=== PATIENT | male | born 1940 | race Caucasian/White ===

== ENCOUNTER 2020-10-23 14:49 | Observation (INO) | payer MEDICARE ==
[2020-10-23] MEDS ORDERED: ASPIRIN 325 MG TAB PO ONE (15:18)
--- NOTE | 2020-10-23 15:55 | XRay Report ---
CHEST 2 VIEWS INDICATION: Chest Pain. COMPARISON: None. FINDINGS: Support devices: None. Heart: Within normal limits. Lungs/Pleura: No acute air space or interstitial disease. Mild elevation right hemidiaphragm. Air i s seen beneath the right hemidiaphragm. This is likely within interposed bowel. IMPRESSION: 1. No acute infiltrate. 2. Air beneath the right hemidiaphragm is favored to be within bowel. If the patient has any acute ab dominal symptoms, further evaluation is recommended with CT abdomen and pelvis. Signer Name: Shaan Weathers MD Signed: 10/23/2020 3:50 PM Workstation Name: [id number]
[2020-10-23 16:10] LABS: Basophils # (Auto) 0.1 K/mm3 (0.0-0.1); Basophils % (Auto) 0.5 % (0.0-1.8); Eosinophils # (Auto) 0.1 K/mm3 (0.0-0.4); Eosinophils % (Auto) 1.1 % (0.0-4.3); Lymphocytes # (Auto) 1.5 K/mm3 (1.2-5.4); Lymphocytes % (Auto) 13.1 % (13.4-35.0); Mean Corpuscular HGB Conc 29 % (32-34); Monocytes # (Auto) 0.8 K/mm3 (0.0-0.8); Monocytes % (Auto) 7.4 % (0.0-7.3); Platelet Count 453 K/mm3 (140-440); Red Blood Count 2.85 M/mm3 (3.65-5.03); Red Cell Distribution Width 19.5 % (13.2-15.2)
[2020-10-23 16:22] LABS: Hemoglobin 5.6 gm/dl (11.8-15.2); Mean Corpuscular Volume 68 fl (84-94)
[2020-10-23 16:23] LABS: Hematocrit 19.3 % (35.5-45.6)
--- NOTE | 2020-10-23 18:04 | Event Note ---
ED Screening Note ED Screening Note: Upon review of patient's chart, it appears patient is hypotensive, his hemoglobin is 5 Discussed with charge nurse Rafy that patient needs a room as soon as possible as this is an emergent patient Also, discussed case with Dr. Araiza, ER attending This initial assessment/diagnostic orders/clinical plan/treatment(s) is/are subject to change based on patients health status, clinical progression and re- assessment by fellow clinical providers in the ED. Further treatment and workup at subsequent clinical providers discretion. Patient/guardian urged not to elope from the ED as their condition may be serious if not clinically assessed and managed.
[2020-10-23] MEDS ORDERED: SODIUM CHLORIDE 0.9% 500 ML 500 ML IV ONE (22:02)
--- NOTE | 2020-10-23 22:07 | Emergency Department Report ---
- General Chief complaint: Weakness Stated complaint: DIFFICULTY BREATHING Time Seen by Provider: 10/23/20 21:41 Source: patient, family Mode of arrival: Wheelchair Limitations: Language Barrier - History of Present Illness Initial comments: 80-year-old male with a past medical history emphysema (albuterol) also currently taking Seroquel (unclear diagnosis) and Myrbetriq (bladder med) presents to the hospital complaining of shortness of breath x3 weeks as well as associated dizziness and generalized weakness. He also complains of pain to his lungs with inspiration patient had a PMD visit today by Dr. Werner and han. Patient was ultimately sent to the ER for evaluation. No trauma or injury reported from fall. Patient also states he has noticed black stool for the last 2 months. No complaints of nausea, vomiting, fever, cough, or previous abdominal surgeries. Patient states he takes aspirin on occasion but denies consistent aspirin or NSAID use - Related Data Allergies Allergy/AdvReac Type Severity Reaction Status Date / Time No Known Allergies Allergy Verified 10/23/20 21:49 ED Review of Systems ROS: Stated complaint: DIFFICULTY BREATHING Other details as noted in HPI Comment: All other systems reviewed and negative ED Physical Exam - General Limitations: Language Barrier - Other Other exam information: General: No acute distress Head: Atraumatic Eyes: normal appearance ENT: Moist mucous membranes Neck: Normal appearance, no midline tenderness Chest: Clear to auscultation bilaterally CV: Regular rate and rhythm Abdomen: Soft, normal bowel sounds, nontender, nondistended, no rebound or guarding Rectal: Dark brown stool guaiac positive no gross blood Back: Normal inspection Extremity: Normal inspection, full range of motion Neuro: Alert O x 3, no facial asymmetry, speech clear, no gross motor sensory deficit Psych: Appropriate behavior Skin: Pale ED Course Vital Signs 10/23/20 10/23/20 15:03 17:27 Temperature 97.8 F Pulse Rate 94 H 91 H Respiratory 14 Rate Blood Pressure 89/53 111/64 [Right] O2 Sat by Pulse 97 Oximetry - Consultations Consultation #1: 10/23/20 22:[address] Zapata with GI and they will consult on the patient ED Medical Decision Making - Lab Data Result diagrams: 10/23/20 15:52 10/23/20 15:52 Lab Results 10/23/20 10/23/20 10/23/20 Range/Units 15:52 15:52 17:53 WBC 11.1 H (4.5-11.0) K/mm3 RBC 2.85 L (3.65-5.03) M/mm3 Hgb 5.6 L* (11.8-15.2) gm/dl Hct 19.3 L* (35.5-45.6) % MCV 68 L (84-94) fl MCH 20 L (28-32) pg MCHC 29 L (32-34) % RDW 19.5 H (13.2-15.2) % Plt Count 453 H (140-440) K/mm3 Lymph % (Auto) 13.1 L (13.4-35.0) % [place] % (Auto) 7.4 H (0.0-7.3) % Eos % (Auto) 1.1 (0.0-4.3) % Baso % (Auto) 0.5 (0.0-1.8) % Lymph # (Auto) 1.5 (1.2-5.4) K/mm3 [place] # (Auto) 0.8 (0.0-0.8) K/mm3 Eos # (Auto) 0.1 (0.0-0.4) K/mm3 Baso # (Auto) 0.1 (0.0-0.1) K/mm3 Seg Neutrophils % 77.9 H (40.0-70.0) % Seg Neutrophils # 8.7 H (1.8-7.7) K/mm3 Sodium 142 (137-145) mmol/L Potassium 4.4 (3.6-5.0) mmol/L Chloride 107.2 H (98-107) mmol/L Carbon Dioxide 23 (22-30) mmol/L Anion Gap 16 mmol/L BUN 14 (9-20) mg/dL Creatinine 1.4 H (0.8-1.3) mg/dL Estimated GFR 49 ml/min BUN/Creatinine Ratio 10 % Glucose 112 H (75-100) mg/dL Calcium 9.0 (8.4-10.2) mg/dL Troponin T 0.017 0.013 (0.00-0.029) ng/mL Blood Type Antibody Screen Crossmatch 10/23/20 10/23/20 Range/Units 18:12 21:02 WBC (4.5-11.0) K/mm3 RBC (3.65-5.03) M/mm3 Hgb (11.8-15.2) gm/dl Hct (35.5-45.6) % MCV (84-94) fl MCH (28-32) pg MCHC (32-34) % RDW (13.2-15.2) % Plt Count (140-440) K/mm3 Lymph % (Auto) (13.4-35.0) % [place] % (Auto) (0.0-7.3) % Eos % (Auto) (0.0-4.3) % Baso % (Auto) (0.0-1.8) % Lymph # (Auto) (1.2-5.4) K/mm3 [place] # (Auto) (0.0-0.8) K/mm3 Eos # (Auto) (0.0-0.4) K/mm3 Baso # (Auto) (0.0-0.1) K/mm3 Seg Neutrophils % (40.0-70.0) % Seg Neutrophils # (1.8-7.7) K/mm3 Sodium (137-145) mmol/L Potassium (3.6-5.0) mmol/L Chloride (98-107) mmol/L Carbon Dioxide (22-30) mmol/L Anion Gap mmol/L BUN (9-20) mg/dL Creatinine (0.8-1.3) mg/dL Estimated GFR ml/min BUN/Creatinine Ratio % Glucose (75-100) mg/dL Calcium (8.4-10.2) mg/dL Troponin T < 0.010 (0.00-0.029) ng/mL Blood Type A POSITIVE Antibody Screen Negative Crossmatch See Detail - EKG Data -: EKG Interpreted by Md EKG shows normal: sinus rhythm, ST-T waves (no stemi) Rate: normal (89) - Radiology Data Radiology results: report reviewed CHEST 2 VIEWS INDICATION: Chest Pain. COMPARISON: None. FINDINGS: Support devices: None. Heart: Within normal limits. Lungs/Pleura: No acute air space or interstitial disease. Mild elevation right hemidiaphragm. Air is seen beneath the right hemidiaphragm. This is likely within interposed bowel. IMPRESSION: 1. No acute infiltrate. 2. Air beneath the right hemidiaphragm is favored to be within bowel. If the patient has any acute abdominal symptoms, further evaluation is recommended with CT abdomen and pelvis. - Medical Decision Making 80-year-old male with progressively worsening shortness of breath, generalized weakness, and dizziness presents to the hospital with a hemoglobin of 5.6. Reports black stools for 2 months. Guaiac positive brown stool on examination. Abdomen soft and nontender. Chest x-ray unremarkable without signs of hypoxia in the ED. 1 unit of RBCs initiated. GI consulted. Patient will be admitted to the hospital service for further evaluation. Patient is initiated Blood pressure was low with a MAP of 65 but repeat blood pressure was within normal range with a MAP of 79. Critical Care Time: No Critical care attestation.: If time is entered above; I have spent that time in minutes in the direct care of this critically ill patient, excluding procedure time. ED Disposition Clinical Impression: Symptomatic anemia, Guaiac positive stools, Weakness, SOB (shortness of breath), Emphysema lung Disposition: OP ADMIT IP TO THIS HOSP Is pt being admited?: Yes Condition: Stable Instructions: Chronic Obstructive Pulmonary Disease (ED) Time of Disposition: 22:11 (Dr Chilel/hospitalist)
[2020-10-23 22:42] LABS: % Iron Saturation 2.79 %
[2020-10-23] MEDS ORDERED: SODIUM CHLORIDE 0.9% 500 ML 500 ML ONE (23:19)
[2020-10-24] MEDS ORDERED: ONDANSETRON 4 MG/2 ML INJ IV PRN (00:45)
[2020-10-24] MEDS ORDERED: ACETAMINOPHEN 325 MG TAB PO PRN (00:45)
[2020-10-24] MEDS ORDERED: ALBUTEROL 2.5 MG/3 ML NEBU IH PRN (00:45)
[2020-10-24] MEDS ORDERED: MORPHINE 2 MG/1 ML INJ IV PRN (00:45)
--- NOTE | 2020-10-24 00:54 | History and Physical Report ---
History of Present Illness Date of examination: 10/23/20 Date of admission: 10/23/20 22:15 Chief complaint: Generalized weakness Shortness of breath History of present illness: 80-year-old male with known history of emphysema and hypertension presenting to the emergency room today complaining of shortness of breath and dizziness which has been ongoing for about 3 weeks. He has also noticed some generalized weakness, occasional black stool. He has denied any chest pain, no fever or chills, denies any headache, no nausea or vomiting, no diarrhea, no h ematuria or dysuria. He denies using any nonsteroidal anti-inflammatory medication except aspirin oc casionally and Pauline-Raymond. Nephew who was by the bedside was the global sales executive as patient is Hungarian- speaking. Upon arrival in the emergency room today patient was found to be slightly hypotensive or given some IV fluid with significant improvement in his blood pressure. Work-up in the emergency room today reveals a hemoglobin of 5.6. He was also guaiac positive. Patient is being admitted for symptomatic anemia. Is been currently prepared for blood transfusion. Past History Past Medical History: hypertension, other (Emphysema) Past Surgical History: No surgical history Social history: smoking (Quit Tobacco use about 8 years ago) Family history: no significant family history Medications and Allergies Allergies Allergy/AdvReac Type Severity Reaction Status Date / Time No Known Allergies Allergy Verified 10/23/20 21:49 Active Meds: Active Medications Acetaminophen (Tylenol) 650 mg PO Q4H PRN PRN Reason: Pain MILD(1-3)/Fever >100.5/MONTANEZ Albuterol (Proventil) 2.5 mg IH Q4HRT PRN PRN Reason: Shortness Of Breath Morphine Sulfate (Morphine) 2 mg IV Q4H PRN PRN Reason: Pain, Moderate (4-6) Ondansetron HCl (Zofran) 4 mg IV Q8H PRN PRN Reason: Nausea And Vomiting Pantoprazole Sodium (Protonix) 40 mg IV BID ASHISH Sodium Chloride (Sodium Chloride Flush Syringe 10 Ml) 10 ml IV BID ASHISH Sodium Chloride (Sodium Chloride Flush Syringe 10 Ml) 10 ml IV PRN PRN PRN Reason: LINE FLUSH Review of Systems Constitutional: weakness, no fever, no chills Ears, nose, mouth and throat: no nasal congestion, no sore throat Cardiovascular: no chest pain, no palpitations Respiratory: shortness of breath, no cough Gastrointestinal: abdominal pain (Epigastric), no nausea, no vomiting, no diarrhea Genitourinary Male: no dysuria, no hematuria, no flank pain Musculoskeletal: no neck pain, no low back pain Integumentary: no rash, no pruritis Neurological: no headaches, no confusion Psychiatric: no anxiety, no depression Exam - Constitutional Vitals: Temp Pulse Resp BP Pulse Ox 97.8 F 89 24 130/71 94 10/23/20 23:40 10/23/20 23:55 10/23/20 23:55 10/23/20 23:55 10/23/20 23:55 General appearance: Present: no acute distress, well-nourished, other (Moderate Pallor.) - EENT Eyes: Present: PERRL, EOM intact. Absent: scleral icterus ENT: hearing intact, clear oral mucosa, dentition normal - Neck Neck: Present: supple, normal ROM - Respiratory Respiratory effort: normal Respiratory: bilateral: CTA - Cardiovascular Rhythm: regular Heart Sounds: Present: S1 & S2. Absent: gallop, systolic murmur, diastolic murmur, rub - Extremities Extremities: no ischemia, pulses intact, pulses symmetrical, No edema Peripheral Pulses: within normal limits - Abdominal General gastrointestinal: Present: soft, tender (Tenderness in epigastric region , Minimal guarding.), non-distended, normal bowel sounds. Absent: mass - Integumentary Integumentary: Present: clear, warm, dry - Musculoskeletal Musculoskeletal: strength equal bilaterally - Psychiatric Psychiatric: appropriate mood/affect, intact judgment & insight, memory intact, cooperative - Neurologic Neurologic: CNII-XII intact, no focal deficits, moves all extremities HEART Score - HEART Score Troponin: Troponin T < 0.010 ng/mL (0.00-0.029) 10/23/20 21:02 Results - Labs CBC & Chem 7: 10/23/20 15:52 10/23/20 15:52 Labs: Abnormal lab results 10/23/20 10/23/20 10/23/20 Range/Units 15:52 15:52 18:12 WBC 11.1 H (4.5-11.0) K/mm3 RBC 2.85 L (3.65-5.03) M/mm3 Hgb 5.6 L* (11.8-15.2) gm/dl Hct 19.3 L* (35.5-45.6) % MCV 68 L (84-94) fl MCH 20 L (28-32) pg MCHC 29 L (32-34) % RDW 19.5 H (13.2-15.2) % Plt Count 453 H (140-440) K/mm3 Lymph % (Auto) 13.1 L (13.4-35.0) % [place] % (Auto) 7.4 H (0.0-7.3) % Seg Neutrophils % 77.9 H (40.0-70.0) % Seg Neutrophils # 8.7 H (1.8-7.7) K/mm3 Chloride 107.2 H (98-107) mmol/L Creatinine 1.4 H (0.8-1.3) mg/dL Glucose 112 H (75-100) mg/dL Iron (49-181) ug/dL Crossmatch See Detail 10/23/20 Range/Units 21:02 WBC (4.5-11.0) K/mm3 RBC (3.65-5.03) M/mm3 Hgb (11.8-15.2) gm/dl Hct (35.5-45.6) % MCV (84-94) fl MCH (28-32) pg MCHC (32-34) % RDW (13.2-15.2) % Plt Count (140-440) K/mm3 Lymph % (Auto) (13.4-35.0) % [place] % (Auto) (0.0-7.3) % Seg Neutrophils % (40.0-70.0) % Seg Neutrophils # (1.8-7.7) K/mm3 Chloride (98-107) mmol/L Creatinine (0.8-1.3) mg/dL Glucose (75-100) mg/dL Iron 10 L (49-181) ug/dL Crossmatch Assessment and Plan - Patient Problems (1) Symptomatic anemia Current Visit: Yes Status: Acute Plan to address problem: Patient is being prepared for blood transfusion. Will monitor CBC. Consult placed to gastroenterology for evaluation and recommendation. He is currently made n.p.o. Patient is also placed on proton pump inhibitor for possible gastritis/upper GI bleed. (2) DVT prophylaxis Current Visit: Yes Status: Acute Plan to address problem: Patient placed on sequential compression device. (3) Full code status Current Visit: Yes Status: Acute
[2020-10-24] MEDS: PANTOPRAZOLE 40 MG INJ IV SCH ×2 (09:26→21:33)
[2020-10-24 11:41] LABS: Iron 25 ug/dL (49-181); Total Iron Binding Capacity 341 mcg/dL (250-450)
--- NOTE | 2020-10-25 00:36 | Consultation ---
REFERRING PHYSICIAN: Sid Gore MD INDICATION: Anemia. HISTORY OF PRESENT ILLNESS: The patient is a 80-year-old male with history of emphysema, hypertension, presents with shortness of breath and dizziness. The patient reports symptoms have been progressively worse over the last 3 weeks. He denies any weight loss or anemia. Denies any chest pain. Denies any other specific GI problems or complaints. The patient came to the Emergency Room, was noted to be very anemic, admitted and GI consulted. No other specific complaints. PAST MEDICAL HISTORY: 1. Hypertension. 2. Emphysema. MEDICATIONS: Reviewed and updated in chart. ALLERGIES: No known drug allergies. SOCIAL HISTORY: Denies alcohol, tobacco or drug abuse. FAMILY HISTORY: Negative for colon cancer, IBD or liver disease. REVIEW OF SYSTEMS: GENERAL: Reports some weakness. HEENT: No visual complaints or tinnitus. PULMONARY: No shortness of breath. No cough. No chest pain. GASTROINTESTINAL: Denies any signs of bleeding. PHYSICAL EXAMINATION: VITAL SIGNS: Temperature of 97.8, pulse 81, respirations 18, blood pressure 137/70. GENERAL: Fairly nourished male, in no acute distress. HEENT: Pupils equal, round and reactive. PULMONARY: Clear to auscultation bilaterally. CARDIOVASCULAR: Regular rhythm. Normal S1, S2. ABDOMEN: Positive bowel sound, soft. SKIN: No obvious rashes. LABORATORY DATA: Pertinent for white count of 11.1, hemoglobin and hematocrit of 5.6 and 19.3, platelet count of 453. Chem-7 within normal limits. ASSESSMENT: A 80-year-old male presents with symptomatic anemia with no obvious signs of gastrointestinal blood loss. The patient reports no signs of bleeding except for occasional black stools recently. Possible upper gastrointestinal bleed. PLAN: 1. Follow hematocrit and transfuse as needed. 2. PPI IV b.i.d. 3. Avoid NSAIDs and aspirin. 4. Probably EGD in a.m. JOB# [id number] CAB/NTS
[2020-10-25 05:23] LABS: Basophils % (Auto) 0.3 % (0.0-1.8); Eosinophils # (Auto) 0.2 K/mm3 (0.0-0.4); Eosinophils % (Auto) 1.8 % (0.0-4.3); Hematocrit 22.3 % (35.5-45.6); Hemoglobin 7.1 gm/dl (11.8-15.2); Lymphocytes # (Auto) 1.4 K/mm3 (1.2-5.4); Mean Corpuscular HGB Conc 32 % (32-34); Monocytes # (Auto) 0.6 K/mm3 (0.0-0.8); Platelet Count 386 K/mm3 (140-440); Red Blood Count 3.22 M/mm3 (3.65-5.03)
[2020-10-25 05:34] LABS: Mean Corpuscular Volume 69 fl (84-94); Red Cell Distribution Width 23.2 % (13.2-15.2)
[2020-10-25 05:42] LABS: BUN/Creatinine Ratio 12; Blood Urea Nitrogen 13 mg/dL (9-20); Calcium 8.8 mg/dL (8.4-10.2); Hemolysis Index 4
[2020-10-25] MEDS: PANTOPRAZOLE 40 MG INJ IV SCH ×2 (10:50→22:45)
[2020-10-25] MEDS ORDERED: SODIUM CHLORIDE 0.9% 1000 ML 1,000 ML IV SCH (12:30)
[2020-10-25] MEDS ORDERED: WATER FOR IRRIG STERILE 1,000 ML BOTTLE ONE (13:21)
--- NOTE | 2020-10-25 13:30 | Anesthesia Day of Surgery ---
Anesthesia Day of Surgery - Day of Surgery Patient Examined: Yes Patient H&P Reviewed: Yes Patient is NPO: Yes
--- NOTE | 2020-10-25 13:30 | Anesthesia Consultation ---
Anesthesia Consult and Med Hx Date of service: 10/25/20 - Airway Anesthetic Teeth Evaluation: Poor (1 remaining lower tooth), Edentulous (upper) ROM Head & Neck: Adequate Mental/Hyoid Distance: Adequate Mallampati Class: Class II Intubation Access Assessment: Probably Good - Pulmonary Exam CTA: Yes - Cardiac Exam Cardiac Exam: RRR - Pre-Operative Health Status ASA Pre-Surgery Classification: ASA3 Proposed Anesthetic Plan: MAC - Pulmonary Hx Smoking: Yes (prior heavy smoker; quit 8yrs ago) SOB: Yes (chronic [place]) Home Oxygen Therapy: No - Cardiovascular System Hx Hypertension: No (noted in chart review but patient denies, BP controlled this admission) Hx Heart Attack/AMI: No Hx Percutaneous Transluminal Coronary Angioplasty (PTCA): No - Central Nervous System CVA: No - Endocrine Hx Renal Disease: No Hx Liver Disease: No Hx Insulin Dependent Diabetes: No Hx Non-Insulin Dependent Diabetes: No Hx Thyroid Disease: No - Hematic Hx Anemia: Yes (symptomatic anemia on admission now s/p pRBCs) - Other Systems 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
[2020-10-25] MEDS ORDERED: propofoL 200 MG/20 ML VIAL IV ONE (13:57)
[2020-10-25] MEDS ORDERED: SODIUM CHLORIDE 0.9% 1000 ML IV SOLN IV ONE (14:10)
--- NOTE | 2020-10-25 14:57 | Post Anesthesia Evaluation ---
- Post Anesthesia Evaluation Patient Participated: Yes Airway Patent: Yes Stable Respiratory Function: Yes Nausea/Vomiting: No Temp > 96.8F: Yes Pain Manageable: Yes Adequeate Hydration: Yes Anesthesia Complications: No
--- NOTE | 2020-10-25 15:42 | Post Operative Note ---
Pre-op diagnosis: gi bleed, anemia Post-op diagnosis: same Findings: EGD: hiatal hernia - few small ulceration, shallow ulcers noted antrum (bx's) - mild duodenitis (bx's) - negative other Procedure: EGD Anesthesia: MAC Surgeon: LIZA FLOWER Estimated blood loss: none Pathology: list Specimen disposition: to lab Condition: stable Disposition: floor
--- NOTE | 2020-10-25 15:55 | Operative Report ---
PROCEDURE: EGD with core biopsies. INDICATIONS: 1. Anemia. 2. Gastrointestinal bleed. MEDICATIONS: Propofol per TOW TRUCK DISPATCHER. COMPLICATIONS: None. DESCRIPTION OF PROCEDURE: The patient brought to procedure suite. The patient had the procedure discussed with him at length. All risks, complications, and benefits discussed after which the patient signed for the procedure to be performed. The patient was placed in left lateral decubitus position. Mouth block was placed in the patient's oral cavity. After adequate sedation medication as above, endoscope placed in the mouth and brought to level of the second portion of duodenum. Retroflexion view was performed. The patient's vital signs remained stable throughout the procedure. FINDINGS: There was a small hiatal hernia at GE junction at 40 cm from the gums. Esophagus otherwise grossly was normal. There was [id number] antral gastritis with some ulcerations and shallow ulcers noted. No bleeding stigmata was noted. Biopsies were taken from the antrum and body and sent for pathology. The remaining stomach otherwise appeared to be normal. There was mild duodenitis in the duodenal bulb. Biopsies were taken and sent to pathology. Remaining duodenum otherwise appeared to be normal. Retroflexion view performed in the stomach showed no other pathology other than noted above. The patient tolerated the procedure well. No complications during the procedure. IMPRESSION: 1. Hiatal hernia. 2. Mild gastritis with shallow ulcers and ulcerations noted in the distal body and antrum with biopsies taken. No bleeding stigmata noted. Duodenitis with biopsies taken. Again, no bleeding stigmata. 3. Otherwise, normal esophagogastroduodenoscopy. RECOMMENDATIONS: 1. Follow up biopsy results. 2. If H. pylori positive, treat. 3. PPI daily. 4. Advance diet. 5. Colonoscopy in a.m. or if the patient elects as an outpatient. JOB# [id number] CAB/NTS
[2020-10-25] MEDS ORDERED: POLYETHYLENE GLYCOL/ELECT SOLN 4000 ML PO ONE (18:00)
--- NOTE | 2020-10-25 21:06 | Progress Note ---
Assessment and Plan - Patient Problems (1) GI bleed Current Visit: Yes Status: Acute Plan to address problem: Packed red blood cell transfusion, GI consulted, endoscopy as per GI team. Patient to operating room today as per GI team. (2) Symptomatic anemia Current Visit: Yes Status: Acute Plan to address problem: Packed red blood cell transfusion, supportive care, repeat CBC in a.m. (3) COPD (chronic obstructive pulmonary disease) Current Visit: Yes Status: Acute Qualifiers: Chronic bronchitis type: mixed simple and mucopurulent Plan to address problem: Supportive care, no acute exacerbation at this time. (4) Hypertension Current Visit: Yes Status: Acute Qualifiers: Hypertension type: essential hypertension Qualified Code(s): I10 - Essential (primary) hypertension Plan to address problem: Monitor blood pressure every shift, continue medical management. (5) DVT prophylaxis Current Visit: Yes Status: Acute Plan to address problem: SCD to bilateral lower extremities while in bed, patient is ambulatory. (6) Advance care planning Current Visit: Yes Status: Acute Plan to address problem: Disease education conducted, patient is full code, care plan discussed, patient knowledges understanding and agreement with care plan, +30 minutes. History Interval history: 80 YO Male HD #2 with GI Bleed complicated by symptomatic anemia. Patient to operating room today for endoscopic evaluation as per GI team. Patient denies pain. No reported nursing events. Patient appears comfortable. Hospitalist Physical - Constitutional Vitals: Temp Pulse Resp BP Pulse Ox 98.3 F 99 H 17 115/72 95 10/25/20 20:50 10/25/20 20:50 10/25/20 20:50 10/25/20 20:50 10/25/20 20:50 General appearance: Present: no acute distress, well-nourished, other (Moderate Pallor.) - EENT Eyes: Present: PERRL (Conjunctival pallor), EOM intact ENT: hearing intact - Neck Neck: Present: supple - Respiratory Respiratory effort: normal Respiratory: bilateral: CTA - Cardiovascular Rhythm: regular Heart Sounds: Present: S1 & S2 - Extremities Extremities: no ischemia Peripheral Pulses: within normal limits - Abdominal General gastrointestinal: soft, non-tender, non-distended - Integumentary Integumentary: Present: clear, dry - Psychiatric Psychiatric: appropriate mood/affect, cooperative HEART Score - HEART Score Troponin: Troponin T < 0.010 ng/mL (0.00-0.029) 10/23/20 21:02 Results - Labs CBC & Chem 7: 10/25/20 04:35 10/25/20 04:35 Labs: Laboratory Last Values WBC 9.1 K/mm3 (4.5-11.0) 10/25/20 04:35 RBC 3.22 M/mm3 (3.65-5.03) L 10/25/20 04:35 Hgb 7.1 gm/dl (11.8-15.2) L 10/25/20 04:35 Hct 22.3 % (35.5-45.6) L 10/25/20 04:35 MCV 69 fl (84-94) L 10/25/20 04:35 MCH 22 pg (28-32) L 10/25/20 04:35 MCHC 32 % (32-34) 10/25/20 04:35 RDW 23.2 % (13.2-15.2) H 10/25/20 04:35 Plt Count 386 K/mm3 (140-440) 10/25/20 04:35 Lymph % (Auto) 16.0 % (13.4-35.0) 10/25/20 04:35 [place] % (Auto) 7.0 % (0.0-7.3) 10/25/20 04:35 Eos % (Auto) 1.8 % (0.0-4.3) 10/25/20 04:35 Baso % (Auto) 0.3 % (0.0-1.8) 10/25/20 04:35 Lymph # (Auto) 1.4 K/mm3 (1.2-5.4) 10/25/20 04:35 [place] # (Auto) 0.6 K/mm3 (0.0-0.8) 10/25/20 04:35 Eos # (Auto) 0.2 K/mm3 (0.0-0.4) 10/25/20 04:35 Baso # (Auto) 0.0 K/mm3 (0.0-0.1) 10/25/20 04:35 Seg Neutrophils % 74.9 % (40.0-70.0) H 10/25/20 04:35 Seg Neutrophils # 6.8 K/mm3 (1.8-7.7) 10/25/20 04:35 PT 13.1 Sec. (12.2-14.9) 10/25/20 04:35 INR 1.00 (0.87-1.13) 10/25/20 04:35 Sodium 136 mmol/L (137-145) L 10/25/20 04:35 Potassium 4.5 mmol/L (3.6-5.0) 10/25/20 04:35 Chloride 106.1 mmol/L (98-107) 10/25/20 04:35 Carbon Dioxide 18 mmol/L (22-30) L 10/25/20 04:35 Anion Gap 16 mmol/L 10/25/20 04:35 BUN 13 mg/dL (9-20) 10/25/20 04:35 Creatinine 1.1 mg/dL (0.8-1.3) 10/25/20 04:35 Estimated GFR > 60 ml/min 10/25/20 04:35 BUN/Creatinine Ratio 12 % 10/25/20 04:35 Glucose 101 mg/dL (75-100) H 10/25/20 04:35 Calcium 8.8 mg/dL (8.4-10.2) 10/25/20 04:35 Iron 25 ug/dL (49-181) L 10/24/20 10:14 TIBC 341 mcg/dL (250-450) 10/24/20 10:14 % Saturation 2.79 % 10/23/20 21:02 Transferrin 291 mg/dl (180-329) 10/23/20 21:02 Troponin T < 0.010 ng/mL (0.00-0.029) 10/23/20 21:02 Blood Type A POSITIVE 10/23/20 18:12 Antibody Screen Negative 10/23/20 18:12 Crossmatch See Detail 10/23/20 18:12 [place]/IV: Voiding Method Toilet IV Catheter Type [Left Forearm INT / Saline Lock ] IV Catheter Type [Right INT / Saline Lock Forearm] Active Medications - Current Medications Current Medications: Generic Name Dose Route Start Last Admin Trade Name Freq PRN Reason Stop Dose Admin Acetaminophen 650 mg 10/24/20 00:45 Tylenol PO Q4H PRN Pain MILD(1-3)/Fever >100.5/MONTANEZ Albuterol 2.5 mg 10/24/20 00:45 Proventil IH Q4HRT PRN Shortness Of Breath Sodium Chloride 1,000 mls @ 50 mls/hr 10/25/20 12:30 Nacl 0.9% 1000 Ml IV DIRECT ASHISH Morphine Sulfate 2 mg 10/24/20 00:45 Morphine IV Q4H PRN Pain, Moderate (4-6) Ondansetron HCl 4 mg 10/24/20 00:45 Zofran IV Q8H PRN Nausea And Vomiting Pantoprazole Sodium 40 mg 10/24/20 10:00 10/25/20 10:50 Protonix IV 40 mg BID ASHISH Administration Sodium Chloride 10 ml 10/24/20 10:00 10/25/20 10:51 Sodium Chloride Flush Syringe 10 Ml IV 10 ml BID ASHISH Administration Sodium Chloride 10 ml 10/24/20 00:45 Sodium Chloride Flush Syringe 10 Ml IV PRN PRN LINE FLUSH
[2020-10-26] MEDS: PANTOPRAZOLE 40 MG INJ IV SCH (10:02)
[2020-10-26] MEDS ORDERED: WATER FOR IRRIG STERILE 1,000 ML BOTTLE ONE (11:08)
--- NOTE | 2020-10-26 11:43 | Anesthesia Day of Surgery ---
Anesthesia Day of Surgery - Day of Surgery Patient Examined: Yes Patient H&P Reviewed: Yes Patient is NPO: Yes
--- NOTE | 2020-10-26 11:45 | Discharge Summary ---
Providers - Providers Date of Admission: 10/23/20 22:15 Attending physician: TERESO JASSO 10/23/20 22:12 Consult to Physician [CONS] Urgent Comment: Consulting Provider: MELINA CRAWFORD Physician Instructions: Reason For Exam: guaic positive stool, anemia Primary care physician: JANET ELLISON Hospitalization Condition: Stable Procedures: EGD: Ulcer, Hiatial hernia Colonscopy: Polyps Hospital course: 80 YO Male with COPD -year-old male with known history of emphysema and hypertension presenting to the emergency room today complaining of shortness of breath and dizziness which has been ongoing for about 3 weeks. Patient seen and evaluated in the emergency department. All lab and imaging studies reviewed. Patient found to be Hemoccult positive. Patient admitted for GI bleed complicated by symptomatic anemia which was treated with packed red blood cell transfusion. GI team consulted in ED. Patient underwent EGD and colonoscopy. Patient medically optimized and back to usual state of health. Patient subsequently discharged home. Patient medically stabilized a day of discharge. Patient instructed to follow primary care physician in 1 week and to follow-up with GI as instructed. 35 minutes dedicated to patient discharge and coordination of care. Patient instructed to have age-appropriate screening upo n next visit to primary care physician. Disposition: - TO HOME OR SELFCARE - Discharge Diagnoses (1) GI bleed Status: Acute (2) Symptomatic anemia Status: Acute (3) COPD (chronic obstructive pulmonary disease) Status: Acute Qualifiers: Chronic bronchitis type: mixed simple and mucopurulent (4) Hypertension Status: Acute Qualifiers: Hypertension type: essential hypertension Qualified Code(s): I10 - Essential (primary) hypertension (5) DVT prophylaxis Status: Acute (6) Advance care planning Status: Acute Core Measure Documentation - Palliative Care Palliative Care/ Comfort Measures: Not Applicable - Core Measures Any of the following diagnoses?: none Exam - Constitutional Vitals: Temp Pulse Resp BP Pulse Ox 97.9 F 98 H 16 116/70 94 10/26/20 08:40 10/26/20 08:40 10/26/20 08:40 10/26/20 08:40 10/26/20 08:40 General appearance: Present: no acute distress, well-nourished - EENT Eyes: Present: PERRL ENT: hearing intact, clear oral mucosa - Neck Neck: Present: supple, normal ROM - Respiratory Respiratory effort: normal Respiratory: bilateral: CTA - Cardiovascular Heart Sounds: Present: S1 & S2. Absent: rub, click - Extremities Extremities: pulses symmetrical, No edema Peripheral Pulses: within normal limits - Abdominal General gastrointestinal: Present: soft, non-tender, non-distended, normal bowel sounds Male genitourinary: Present: normal - Integumentary Integumentary: Present: clear, warm, dry - Musculoskeletal Musculoskeletal: gait normal, strength equal bilaterally - Psychiatric Psychiatric: appropriate mood/affect, intact judgment & insight - Neurologic Neurologic: CNII-XII intact, moves all extremities Plan Activity: advance as tolerated Follow up with: PRIMARY CARE, [Referring] - 3-5 Days Prescriptions: Sennosides/Docusate Sodium [Docusate Sodium-Senna Tablet] 1 each PO BID #60 tablet Ferrous Sulfate [Ferrous Sulfate 324 MG] 324 mg PO BID #60 tablet. Pantoprazole [Protonix] 40 mg PO BID #60 tablet
[2020-10-26] MEDS ORDERED: propofoL 200 MG/20 ML VIAL IV ONE (12:16)
[2020-10-26 13:28] VITALS: BP 93/65
--- NOTE | 2020-10-26 13:48 | Progress Note ---
Assessment and Plan - Patient Problems (1) GI bleed Current Visit: Yes Status: Acute Plan to address problem: Packed red blood cell transfusion, GI consulted, endoscopy as per GI team. Patient to operating room today as per GI team. (2) Symptomatic anemia Current Visit: Yes Status: Acute Plan to address problem: Packed red blood cell transfusion, supportive care, repeat CBC in a.m. (3) COPD (chronic obstructive pulmonary disease) Current Visit: Yes Status: Acute Qualifiers: Chronic bronchitis type: mixed simple and mucopurulent Plan to address problem: Supportive care, no acute exacerbation at this time. (4) Hypertension Current Visit: Yes Status: Acute Qualifiers: Hypertension type: essential hypertension Qualified Code(s): I10 - Essential (primary) hypertension Plan to address problem: Monitor blood pressure every shift, continue medical management. (5) DVT prophylaxis Current Visit: Yes Status: Acute Plan to address problem: SCD to bilateral lower extremities while in bed, patient is ambulatory. (6) Advance care planning Current Visit: Yes Status: Acute Plan to address problem: Disease education conducted, patient is full code, care plan discussed, patient knowledges understanding and agreement with care plan, +30 minutes. History Interval history: 80 YO Male with GI Bleed complicated by symptomatic anemia. Patient to operating room today for endoscopic evaluation as per GI team. Patient denies pain. No reported nursing events. Patient appears comfortable. Hospitalist Physical - Constitutional Vitals: Temp Pulse Resp BP Pulse Ox 98.6 F 78 14 93/65 98 10/26/20 13:07 10/26/20 13:07 10/26/20 13:07 10/26/20 13:07 10/26/20 13:07 General appearance: Present: no acute distress, well-nourished, other (Moderate Pallor.) - EENT Eyes: Present: PERRL, EOM intact ENT: hearing intact - Neck Neck: Present: supple - Respiratory Respiratory effort: normal Respiratory: bilateral: CTA - Cardiovascular Rhythm: regular Heart Sounds: Present: S1 & S2 - Extremities Extremities: no ischemia Peripheral Pulses: within normal limits - Abdominal General gastrointestinal: soft, non-tender, non-distended - Integumentary Integumentary: Present: clear, dry - Psychiatric Psychiatric: appropriate mood/affect, cooperative - Neurologic Neurologic: CNII-XII intact HEART Score - HEART Score Troponin: Troponin T < 0.010 ng/mL (0.00-0.029) 10/23/20 21:02 Results - Labs CBC & Chem 7: 10/25/20 04:35 10/25/20 04:35 Labs: Laboratory Last Values WBC 9.1 K/mm3 (4.5-11.0) 10/25/20 04:35 RBC 3.22 M/mm3 (3.65-5.03) L 10/25/20 04:35 Hgb 7.1 gm/dl (11.8-15.2) L 10/25/20 04:35 Hct 22.3 % (35.5-45.6) L 10/25/20 04:35 MCV 69 fl (84-94) L 10/25/20 04:35 MCH 22 pg (28-32) L 10/25/20 04:35 MCHC 32 % (32-34) 10/25/20 04:35 RDW 23.2 % (13.2-15.2) H 10/25/20 04:35 Plt Count 386 K/mm3 (140-440) 10/25/20 04:35 Lymph % (Auto) 16.0 % (13.4-35.0) 10/25/20 04:35 [place] % (Auto) 7.0 % (0.0-7.3) 10/25/20 04:35 Eos % (Auto) 1.8 % (0.0-4.3) 10/25/20 04:35 Baso % (Auto) 0.3 % (0.0-1.8) 10/25/20 04:35 Lymph # (Auto) 1.4 K/mm3 (1.2-5.4) 10/25/20 04:35 [place] # (Auto) 0.6 K/mm3 (0.0-0.8) 10/25/20 04:35 Eos # (Auto) 0.2 K/mm3 (0.0-0.4) 10/25/20 04:35 Baso # (Auto) 0.0 K/mm3 (0.0-0.1) 10/25/20 04:35 Seg Neutrophils % 74.9 % (40.0-70.0) H 10/25/20 04:35 Seg Neutrophils # 6.8 K/mm3 (1.8-7.7) 10/25/20 04:35 PT 13.1 Sec. (12.2-14.9) 10/25/20 04:35 INR 1.00 (0.87-1.13) 10/25/20 04:35 Sodium 136 mmol/L (137-145) L 10/25/20 04:35 Potassium 4.5 mmol/L (3.6-5.0) 10/25/20 04:35 Chloride 106.1 mmol/L (98-107) 10/25/20 04:35 Carbon Dioxide 18 mmol/L (22-30) L 10/25/20 04:35 Anion Gap 16 mmol/L 10/25/20 04:35 BUN 13 mg/dL (9-20) 10/25/20 04:35 Creatinine 1.1 mg/dL (0.8-1.3) 10/25/20 04:35 Estimated GFR > 60 ml/min 10/25/20 04:35 BUN/Creatinine Ratio 12 % 10/25/20 04:35 Glucose 101 mg/dL (75-100) H 10/25/20 04:35 Calcium 8.8 mg/dL (8.4-10.2) 10/25/20 04:35 Iron 25 ug/dL (49-181) L 10/24/20 10:14 TIBC 341 mcg/dL (250-450) 10/24/20 10:14 % Saturation 2.79 % 10/23/20 21:02 Transferrin 291 mg/dl (180-329) 10/23/20 21:02 Troponin T < 0.010 ng/mL (0.00-0.029) 10/23/20 21:02 Blood Type A POSITIVE 10/23/20 18:12 Antibody Screen Negative 10/23/20 18:12 Crossmatch See Detail 10/23/20 18:12 Purecll/IV: Voiding Method Toilet IV Catheter Type [Left Forearm INT / Saline Lock ] IV Catheter Type [Right INT / Saline Lock Forearm] Active Medications - Current Medications Current Medications: Generic Name Dose Route Start Last Admin Trade Name Freq PRN Reason Stop Dose Admin Acetaminophen 650 mg 10/24/20 00:45 Tylenol PO Q4H PRN Pain MILD(1-3)/Fever >100.5/MONTANEZ Albuterol 2.5 mg 10/24/20 00:45 Proventil IH Q4HRT PRN Shortness Of Breath Sodium Chloride 1,000 mls @ 50 mls/hr 10/25/20 12:30 Nacl 0.9% 1000 Ml IV DIRECT ASHISH Morphine Sulfate 2 mg 10/24/20 00:45 Morphine IV Q4H PRN Pain, Moderate (4-6) Ondansetron HCl 4 mg 10/24/20 00:45 Zofran IV Q8H PRN Nausea And Vomiting Pantoprazole Sodium 40 mg 10/24/20 10:00 10/26/20 10:02 Protonix IV 40 mg BID ASHISH Administration Sodium Chloride 10 ml 10/24/20 10:00 10/26/20 10:02 Sodium Chloride Flush Syringe 10 Ml IV 10 ml BID ASHISH Administration Sodium Chloride 10 ml 10/24/20 00:45 Sodium Chloride Flush Syringe 10 Ml IV PRN PRN LINE FLUSH
--- NOTE | 2020-10-26 13:59 | Post Operative Note ---
Pre-op diagnosis: anemia Post-op diagnosis: same Findings: Colon: 4-5 cm 1/3 circumferential lesion ascending colon, cold bx's/nora ink - negative other Procedure: Colonoscopy Anesthesia: MAC Surgeon: LIZA FLOWER Estimated blood loss: none Pathology: list Specimen disposition: to lab Condition: stable Disposition: floor
--- NOTE | 2020-10-26 15:30 | Consultation ---
History of Present Illness Consult date: 10/26/20 Reason for consult: abdominal pain Chief complaint: weakness, abd pain, sob - History of present illness History of present illness: Patient is Danish-speaking only and the entire interview was conducted with the [facility] certified court/medical interpreter. 80-year-old male with past medical history of emphysema who presented to the emergency department with several days of dizziness, shortness of breath, upper abdominal pain. The patient states that the upper abdominal pain was sharp and did not radiate. It was right above the bellybutton area. He states that the pain is completely resolved today. He is hungry and wanting to eat regular food. The patient also relays a history of dark black stools. He states this is resolved as well. Upon arrival to the emergency room, work-up showed an anemia with hemoglobin at 5.6. The patient was transfused 1 unit of blood during the hospitalization. The patient underwent an EGD and colonoscopy. EGD showed duodenitis, small hiatal hernia, small ulcerations in the stomach. Colonoscopy showed a 5 cm ascending colon mass approximately one third the circumference of the colon without evidence of active bleeding or obstruction. Surgery is consulted for evaluation. Pt states he feels better. He is tolerating a diet and asking for more than clear liquids. No abdominal pain. No n/v. No further melena. He is wanting to go home. Past History Past Medical History: hypertension, other (Emphysema) Past Surgical History: No surgical history Social history: smoking (Quit Tobacco use about 8 years ago) Family history: no significant family history Medications and Allergies Allergies Allergy/AdvReac Type Severity Reaction Status Date / Time Penicillins Allergy Unknown Verified 10/26/20 13:35 Home Medications Medication Instructions Recorded Confirmed Last Taken Type Ferrous Sulfate [Ferrous Sulfate 324 mg PO BID #60 tablet. 10/26/20 Unknown Rx 324 MG] Pantoprazole [Protonix] 40 mg PO BID #60 tablet 10/26/20 Unknown Rx Sennosides/Docusate Sodium 1 each PO BID #60 tablet 10/26/20 Unknown Rx [Docusate Sodium-Senna Tablet] Active Meds: Active Medications Acetaminophen (Tylenol) 650 mg PO Q4H PRN PRN Reason: Pain MILD(1-3)/Fever >100.5/MONTANEZ Albuterol (Proventil) 2.5 mg IH Q4HRT PRN PRN Reason: Shortness Of Breath Sodium Chloride (Nacl 0.9% 1000 Ml) 1,000 mls @ 50 mls/hr IV DIRECT [facility] Morphine Sulfate (Morphine) 2 mg IV Q4H PRN PRN Reason: Pain, Moderate (4-6) Ondansetron HCl (Zofran) 4 mg IV Q8H PRN PRN Reason: Nausea And Vomiting Pantoprazole Sodium (Protonix) 40 mg IV BID [facility] Last Admin: 10/26/20 10:02 Dose: 40 mg Documented by: Sodium Chloride (Sodium Chloride Flush Syringe 10 Ml) 10 ml IV BID [facility] Last Admin: 10/26/20 10:02 Dose: 10 ml Documented by: Sodium Chloride (Sodium Chloride Flush Syringe 10 Ml) 10 ml IV PRN PRN PRN Reason: LINE FLUSH Review of Systems All systems: negative (10 point ROS performed and negative except for that listed in HPI) Exam Vital Signs Temp Pulse Resp BP Pulse Ox 97.8 F 94 H 14 89/53 97 10/23/20 15:03 10/23/20 15:03 10/23/20 15:03 10/23/20 15:03 10/23/20 15:03 Narrative exam: Gen.: Awake, alert, oriented 3. No apparent distress ENT: Trachea midline. No lymphadenopathy. No scleral icterus or conjunctival pallor CV: S1, S2 present Respiratory: No audible wheezes Abdomen: Soft, nondistended, nontender. No rebound, rigidity, guarding Extremities: No clubbing, cyanosis, edema Results - Labs 10/25/20 04:35 10/25/20 04:35 - Imaging Chest x-ray: report reviewed, image reviewed Assessment and Plan 80-year-old male with anemia, multifactorial likely secondary to gastric ulcers and ascending colon mass. Pt stable. Pt wanting to go home. Plan: 1. Follow up biopsy results 2. soft diet 3. As patient is not obstructed or actively bleeding, can be discharged home and follow up in surgery clinic as an outpatient. I have made an appointment for Sunday, November 01, 2020 at [address] scan abdomen and pelvis will be scheduled through my office 5. Referral to oncology as outpatient 6. We will order CEA and additional labs through my office. I explained the results of the patient's labs, endoscopy and colonoscopy to the patient's nephew Mr. Mustafa as per the patient's request. I explained that the patient will need to follow-up in the office as scheduled as he will need elective colectomy for the ascending colon mass. He understands and is agreeable. Discussed with Dr. Scott and Bao. Thank you for this consultation. Please call with any questions or concerns. Evaluation and treatment of this patient was during the time of the national and state emergency arising from COVID19 coronavirus pandemic. Treatment and pr ocedures performed meet the current and available best practice and guidelines for patient during the COVID pandemic.
--- NOTE | 2020-10-26 16:04 | Operative Report ---
PROCEDURE: Colonoscopy with cold biopsy and Nini ink marking. INDICATIONS: 1. Anemia. 2. Gastrointestinal bleed. MEDICATIONS: Propofol per CLINICAL COUNSELOR. COMPLICATIONS: None. DESCRIPTION OF PROCEDURE: The patient was brought to procedure suite. The patient had the procedure discussed with him at length. All risks, complications, and benefits discussed after which the patient signed for the procedure performed. The patient was placed in the left lateral decubitus position. Rectal exam performed prior to insertion of the scope. After adequate sedation medication as above, scope inserted into the rectum, brought to level of cecum. Ileocecal valve, appendiceal orifice, cecal strap were visualized. Colonoscope was then removed and mucosa of colon visualized. Prep quality was fair. The patient's vital signs remained stable throughout the procedure. FINDINGS: There was noted to be a 30-40 cm circumferential nonobstructing mass noted in the mid ascending colon. This was approximately 4-5 cm in length. This had a malignant like appearance. Multiple cold biopsies were taken and sent to pathology. Nini ink marking with a total of 5 mL was then applied to the area. There were no other mass lesions, polyps, or diverticula noted during this procedure. Retroflexion view performed in the rectum showed small to medium internal hemorrhoids. The patient tolerated the procedure well. No complications noted during the procedure. IMPRESSION: 1. Mass lesions, ascending colon, status post cold biopsy and Nini ink marking. 2. Internal hemorrhoids. 3. Otherwise, normal colonoscopy. RECOMMENDATIONS: 1. Follow up biopsy results. 2. Avoid NSAIDs and aspirin for 5 days. 3. Colorectal Surgery consult as well as Oncology consult. 4. CT scan of abdomen and pelvis with contrast if not already done. 5. Okay to discharge when cleared by consultants as noted above. JOB# [id number] CAB/NTS
== END 2020-10-26 15:59 | disposition home or self-care (01) ==
LOC: ED 14:49 → 4A 22:15
PROVIDERS: ADMIT Internal Medicine Geriatric Medicine; ATTEND Internal Medicine
DX: K92.2 Gastrointestinal hemorrhage, unspecified (principal); D64.9 Anemia, unspecified; K44.9 Diaphragmatic hernia without obstruction or gangrene; I10 Essential (primary) hypertension; J43.9 Emphysema, unspecified; R42 Dizziness and giddiness; K64.8 Other hemorrhoids; Z87.891 Personal history of nicotine dependence; Z79.899 Other long term (current) drug therapy; Z88.0 Allergy status to penicillin
CPT/HCPCS: 36415; 36430; 43239; 45380; 71046; 80048; 82271; 83550; 84484; 85025; 85610; 86850; 86900; 86901; 86920; 88305; 88342; 93005; 96360; 96361; 96374; 96376; 99285; C9113; G0378; J2704; J7030; J7040; P9016

== ENCOUNTER 2020-11-01 11:58 | Emergency (ER) | payer MEDICARE ==
[2020-11-01 12:28] VITALS: BP 121/68
--- NOTE | 2020-11-01 12:29 | Event Note ---
ED Screening Note ED Screening Note: abd pain black stools had endoscopy and needed blood transfusion last week no vomiting hx of erosive PUD hx of hernia sent by doctor gen joao nguyen This initial assessment/diagnostic orders/clinical plan/treatment(s) is/are subject to change based on patients health status, clinical progression and re- assessment by fellow clinical providers in the ED. Further treatment and workup at subsequent clinical providers discretion. Patient/guardian urged not to elope from the ED as their condition may be serious if not clinically assessed and managed. Initial orders include: labs EKG NEEDS MAIN ROOM JANI charge nurse notified
[2020-11-01 14:00] LABS: Basophils % (Auto) 0.7 % (0.0-1.8); Eosinophils # (Auto) 0.1 K/mm3 (0.0-0.4); Eosinophils % (Auto) 2.2 % (0.0-4.3); Hematocrit 23.3 % (35.5-45.6); Hemoglobin 7.1 gm/dl (11.8-15.2); Lymphocytes # (Auto) 1.4 K/mm3 (1.2-5.4); Lymphocytes % (Auto) 20.8 % (13.4-35.0); Mean Corpuscular HGB Conc 30 % (32-34); Monocytes # (Auto) 0.5 K/mm3 (0.0-0.8); Monocytes % (Auto) 7.4 % (0.0-7.3); Platelet Count 495 K/mm3 (140-440); Red Blood Count 3.36 M/mm3 (3.65-5.03)
[2020-11-01 14:05] LABS: Mean Corpuscular Volume 70 fl (84-94); Red Cell Distribution Width 24.4 % (13.2-15.2)
[2020-11-01 14:21] LABS: Alanine Aminotransferase 24 units/L (7-56); BUN/Creatinine Ratio 13; Blood Urea Nitrogen 13 mg/dL (9-20); Hemolysis Index 1
[2020-11-01] MEDS ORDERED: PANTOPRAZOLE 40 MG INJ IV ONE (17:25)
[2020-11-01] MEDS ORDERED: ONDANSETRON 4 MG/2 ML INJ IV ONE (17:25)
[2020-11-01] MEDS ORDERED: MORPHINE 4 MG/1 ML INJ IV ONE (17:25)
--- NOTE | 2020-11-01 17:49 | Emergency Department Report ---
ED Abdominal Pain HPI - General Chief Complaint: Abdominal Pain Stated Complaint: DIZZY/DOC SENT PUI?: No Time Seen by Provider: 11/01/20 12:25 Source: patient, family Mode of arrival: Ambulatory Limitations: No Limitations - History of Present Illness Initial Comments: Chief complaint: abdominal pain dark bloody stools HPI: This is a 80-year-old male with history of GI bleed, COPD, anemia, hypertension, colonic mass, duodenitis, hiatal hernia who presents with abdominal pain for the past week. Patient has had dark bloody stools over that same course of time. Patient's abdominal pain began after receiving transfusion while hospitalized. Patient was recently discharged 6 days ago after extensive evaluation for GI bleeding colonic mass. He received 1 unit packed red blood cells. According to EMR he underwent EGD and colonoscopy. Dr. Díaz general surgeon referred patient to the emergency department today for CT abdominal pelvic skin considering patient had persistent abdominal pain. Patient has mild to moderate central dull abdominal pain without radiation. Gradual onset. No change with food. History obtained with assistance of an in person language interpreter at the bedside. MD Complaint: abdominal pain -: Gradual, week(s) (1 week ago) Location: diffuse (Central) Radiation: none Migration to: no migration Severity: mild, moderate Severity scale (0 -10): 7 Quality: aching, dull Consistency: constant Improves With: nothing Worsens With: nothing Associated Symptoms: other (Dark bloody stools) - Related Data Previous Rx's Medication Instructions Recorded Last Taken Type Ferrous Sulfate [Ferrous Sulfate 324 mg PO BID #60 tablet. 10/26/20 Unknown Rx 324 MG] Pantoprazole [Protonix] 40 mg PO BID #60 tablet 10/26/20 Unknown Rx Sennosides/Docusate Sodium 1 each PO BID #60 tablet 10/26/20 Unknown Rx [Docusate Sodium-Senna Tablet] traMADoL [Ultram 50 MG tab] 50 mg PO Q6HR PRN #15 tablet 11/01/20 Unknown Rx Allergies Allergy/AdvReac Type Severity Reaction Status Date / Time Penicillins Allergy Unknown Verified 10/26/20 13:35 ED Review of Systems ROS: Stated complaint: DIZZY/DOC SENT Other details as noted in HPI Comment: All other systems reviewed and negative Constitutional: denies: fever, malaise Respiratory: denies: cough, shortness of breath Gastrointestinal: melena, hematochezia. denies: nausea, vomiting ED Past Medical Hx - Past Medical History Previous Medical History?: Yes Hx Hypertension: Yes Hx Heart Attack/AMI: No Hx Congestive Heart Failure: No Hx Deep Vein Thrombosis: No Hx Pulmonary Embolism: No Hx Liver Disease: No Hx Renal Disease: No Hx Headaches / Migraines: No Hx Seizures: No Hx Asthma: No Hx COPD: No Hx Tuberculosis: No Hx Dementia: No Additional medical history: emphysema - Surgical History Hx Coronary Stent: No Hx Pacemaker: No Hx Internal Defibrillator: No Additional Surgical History: EGD, colonoscopy - Social History Smoking Status: Never Smoker Substance Use Type: None - Medications Home Medications: Home Medications Medication Instructions Recorded Confirmed Last Taken Type Ferrous Sulfate [Ferrous Sulfate 324 mg PO BID #60 tablet.dr 10/26/20 Unknown Rx 324 MG] Pantoprazole [Protonix] 40 mg PO BID #60 tablet 10/26/20 Unknown Rx Sennosides/Docusate Sodium 1 each PO BID #60 tablet 10/26/20 Unknown Rx [Docusate Sodium-Senna Tablet] traMADoL [Ultram 50 MG tab] 50 mg PO Q6HR PRN #15 tablet 11/01/20 Unknown Rx ED Physical Exam - General Limitations: No Limitations General appearance: alert, in no apparent distress, other (Appears frail, am bulates without difficulty but slowly) - Head Head exam: Present: atraumatic, normocephalic - Eye Eye exam: Present: normal appearance - ENT ENT exam: Present: mucous membranes moist - Neck Neck exam: Present: normal inspection, full ROM - Respiratory Respiratory exam: Present: normal lung sounds bilaterally. Absent: respiratory distress, wheezes, rales, rhonchi - Cardiovascular Cardiovascular Exam: Present: regular rate, normal rhythm, normal heart sounds. Absent: systolic murmur, diastolic murmur, rubs, gallop - GI/Abdominal GI/Abdominal exam: Present: soft, normal bowel sounds. Absent: distended, tenderness, guarding, rebound - Rectal Rectal exam: Present: normal rectal tone, heme (-) stool, other ([place]-brown stool no melena no gross blood) - Extremities Exam Extremities exam: Present: normal inspection - Neurological Exam Neurological exam: Present: alert, oriented X3 - Psychiatric Psychiatric exam: Present: normal affect, normal mood - Skin Skin exam: Present: warm, dry, intact, pallor. Absent: rash ED Course Vital Signs 11/01/20 12:08 Pulse Rate 86 Respiratory 18 Rate Blood Pressure 121/68 O2 Sat by Pulse 98 Oximetry ED Medical Decision Making - Lab Data Result diagrams: 11/01/20 13:33 11/01/20 13:33 Laboratory Results - last 24 hr 11/01/20 11/01/20 11/01/20 13:33 13:33 13:34 WBC 6.7 RBC 3.36 L Hgb 7.1 L Hct 23.3 L MCV 70 L MCH 21 L MCHC 30 L RDW 24.4 H Plt Count 495 H Lymph % (Auto) 20.8 [place] % (Auto) 7.4 H Eos % (Auto) 2.2 Baso % (Auto) 0.7 Lymph # (Auto) 1.4 [place] # (Auto) 0.5 Eos # (Auto) 0.1 Baso # (Auto) 0.0 Seg Neutrophils % 68.9 Seg Neutrophils # 4.6 Sodium 140 Potassium 4.3 Chloride 105.8 Carbon Dioxide 25 Anion Gap 14 BUN 13 Creatinine 1.0 Estimated GFR > 60 BUN/Creatinine Ratio 13 Glucose 92 Calcium 9.0 Total Bilirubin 0.30 AST 36 ALT 24 Alkaline Phosphatase 65 Total Protein 7.1 Albumin 4.0 Albumin/Globulin Ratio 1.3 Lipase 56 Blood Type A POSITIVE Antibody Screen Negative - EKG Data -: EKG Interpreted by [facility] EKG shows normal: sinus rhythm, axis, intervals, QRS complexes, ST-T waves Rate: normal - EKG Data Interpretation: normal EKG 11/01/20 19:02 EKG obtained 1235 EKG interpreted by ms Rate 80 bpm Normal sinus rhythm normal rate normal axis normal intervals no ST elevation no ST-T signs of ischemia normal EKG - Radiology Data Radiology results: report reviewed CT abdomen pelvis w con INDICATION / CLINICAL INFORMATION: abdominal pain hx of hernia hx of gi bleed. TECHNIQUE: All CT scans at this location are performed using CT dose reduction for ALARA by means of automated exposure control. COMPARISON: None available. FINDINGS: No free fluid is seen in the abdomen. Small cysts are seen in the left lobe of the liver. There is an ill-defined 1.7 cm slightly low density lesion in the right lobe of the liver (image 44). Small cysts are present in the kidneys. Diffuse atherosclerotic changes present without evidence of an aneurysm. The spleen, pancreas and adrenal glands are normal. No enlarged mesenteric or retroperitoneal lymph nodes are identified. There is thickening of the mid ascending colon. The pelvis, no free fluid is seen. No enlarged lymph nodes are identified. The bladder and the appendix are normal. No significant skeletal abnormality is seen. Moderate degenerative changes seen in the lower lumbar spine IMPRESSION: 1. Thickening of the mid ascending colon 2. Ill-defined 1.7 cm slightly low density lesion in the right lobe of the liver. Small cysts are seen in the left lobe 3. Diffuse atherosclerotic change without evidence of an aneurysm 4. Degenerative change in the lower lumbar spine - Medical Decision Making 1. Abdominal pain: History of mass of the ascending colon. I spoke with surgeon Dr. Cedillo. I discussed CT exam findings. She is concerned that patient patient may have hepatic metastasis. Today there is a one-point c entimeter hepatic lobe lesion. I have informed patient's nephew all the findings and clinical concerns. He understands to have patient follow-up with general surgeon Dr. Cedillo. No evidence of acute inflammatory obstructive process in the abdomen according to CT scan and clinical exam. 2. History of GI bleed: Reported melena. Hemoccult negative stool on today's exam. No current hematochezia or melena I have prescribed tramadol for pain. Patient is discharged home. Critical care attestation.: If time is entered above; I have spent that time in minutes in the direct care of this critically ill patient, excluding procedure time. ED Disposition Clinical Impression: Mass of colon, Abdominal pain, Hiatal hernia, Peptic ulcer disease Disposition: - TO HOME OR SELFCARE Is pt being admited?: No Does the pt Need Aspirin: No Condition: Stable Additional Instructions: Please follow-up with Dr. Cedillo. Prescriptions: traMADoL [Ultram 50 MG tab] 50 mg PO Q6HR PRN #15 tablet PRN Reason: Pain Referrals: JIMI CEDILLO DO [Staff Physician] - 3-5 Days
[2020-11-01 17:55] LABS: Bilirubin,Urine NEG (Negative); Blood,Urine NEG (Negative); Color,Urine Yellow (Yellow); Protein,Urine <15 mg/dL mg/dL (Negative); Urobilinogen,Urine < 2.0 mg/dL (<2.0)
--- NOTE | 2020-11-01 18:03 | Cat Scan Report ---
CT abdomen pelvis w con INDICATION / CLINICAL INFORMATION: abdominal pain hx of hernia hx of gi bleed. TECHNIQUE: All CT scans at this location are performed using CT dose reduction for ALARA by means of automated e xposure control. COMPARISON: None available. FINDINGS: No free fluid is seen in the abdomen. Small cysts are seen in the left lobe of the liver. There is an ill-defined 1.7 cm slightly low density lesion in the right lobe of the liver (image 44). Small cyst s are present in the kidneys. Diffuse atherosclerotic changes present without evidence of an aneurysm . The spleen, pancreas and adrenal glands are normal. No enlarged mesenteric or retroperitoneal lymph nodes are identified. There is thickening of the mid ascending colon. The pelvis, no free fluid is seen. No enlarged lymph nodes are identified. The bladder and the append ix are normal. No significant skeletal abnormality is seen. Moderate degenerative changes seen in the lower lumbar spine IMPRESSION: 1. Thickening of the mid ascending colon 2. Ill-defined 1.7 cm slightly low density lesion in the right lobe of the liver. Small cysts are see n in the left lobe 3. Diffuse atherosclerotic change without evidence of an aneurysm 4. Degenerative change in the lower lumbar spine Signer Name: Paul Good MD FACR Signed: 11/01/2020 5:59 PM Workstation Name: [id number]
--- NOTE | 2020-11-01 18:06 | Emergency Department Report ---
ED General Adult HPI - General Chief complaint: Abdominal Pain Stated complaint: DIZZY/DOC SENT PUI?: No Time Seen by Provider: 11/01/20 12:25 Source: patient, family Mode of arrival: Ambulatory Limitations: No Limitations - History of Present Illness Severity scale (0 -10): 7 - Related Data Previous Rx's Medication Instructions Recorded Last Taken Type Ferrous Sulfate [Ferrous Sulfate 324 mg PO BID #60 tablet. 10/26/20 Unknown Rx 324 MG] Pantoprazole [Protonix] 40 mg PO BID #60 tablet 10/26/20 Unknown Rx Sennosides/Docusate Sodium 1 each PO BID #60 tablet 10/26/20 Unknown Rx [Docusate Sodium-Senna Tablet] Allergies Allergy/AdvReac Type Severity Reaction Status Date / Time Penicillins Allergy Unknown Verified 10/26/20 13:35 ED Review of Systems ROS: Stated complaint: DIZZY/DOC SENT Other details as noted in HPI Comment: All other systems reviewed and negative Constitutional: denies: fever, malaise Eyes: denies: eye pain, eye discharge, vision change ENT: denies: ear pain, throat pain Respiratory: denies: cough, shortness of breath Cardiovascular: denies: chest pain, palpitations Endocrine: no symptoms reported Gastrointestinal: melena, hematochezia. denies: nausea, vomiting Genitourinary: denies: urgency, dysuria Musculoskeletal: denies: back pain, joint swelling, arthralgia Skin: denies: rash, lesions Neurological: denies: headache, weakness, paresthesias Psychiatric: denies: anxiety, depression Hematological/Lymphatic: denies: easy bleeding, easy bruising ED Past Medical Hx - Past Medical History Previous Medical History?: Yes Hx Hypertension: Yes Hx Heart Attack/AMI: No Hx Congestive Heart Failure: No Hx Deep Vein Thrombosis: No Hx Pulmonary Embolism: No Hx Liver Disease: No Hx Renal Disease: No Hx Headaches / Migraines: No Hx Seizures: No Hx Asthma: No Hx COPD: No Hx Tuberculosis: No Hx Dementia: No Additional medical history: emphysema - Surgical History Past Surgical History?: Yes Hx Coronary Stent: No Hx Pacemaker: No Hx Internal Defibrillator: No Additional Surgical History: EGD, colonoscopy - Social History Smoking Status: Never Smoker Substance Use Type: None - Medications Home Medications: Home Medications Medication Instructions Recorded Confirmed Last Taken Type Ferrous Sulfate [Ferrous Sulfate 324 mg PO BID #60 tablet. 10/26/20 Unknown Rx 324 MG] Pantoprazole [Protonix] 40 mg PO BID #60 tablet 10/26/20 Unknown Rx Sennosides/Docusate Sodium 1 each PO BID #60 tablet 10/26/20 Unknown Rx [Docusate Sodium-Senna Tablet] ED Physical Exam - General Limitations: No Limitations General appearance: alert, in no apparent distress, other (Appears frail, ambulates without difficulty but slowly) - Head Head exam: Present: atraumatic, normocephalic - Eye Eye exam: Present: normal appearance - ENT ENT exam: Present: mucous membranes moist - Neck Neck exam: Present: normal inspection - Respiratory Respiratory exam: Present: normal lung sounds bilaterally. Absent: respiratory distress - Cardiovascular Cardiovascular Exam: Present: regular rate, normal rhythm. Absent: systolic murmur, diastolic murmur, rubs, gallop - GI/Abdominal GI/Abdominal exam: Present: soft, normal bowel sounds - Rectal Rectal exam: Present: deferred - Extremities Exam Extremities exam: Present: normal inspection - Back Exam Back exam: Present: normal inspection - Neurological Exam Neurological exam: Present: alert, oriented X3 - Psychiatric Psychiatric exam: Present: normal affect, normal mood - Skin Skin exam: Present: warm, dry, intact, normal color. Absent: rash ED Course Vital Signs 11/01/20 12:08 Pulse Rate 86 Respiratory 18 Rate Blood Pressure 121/68 O2 Sat by Pulse 98 Oximetry ED Medical Decision Making - Lab Data Result diagrams: 11/01/20 13:33 11/01/20 13:33 Laboratory Results - last 24 hr 11/01/20 11/01/20 11/01/20 13:33 13:33 13:34 WBC 6.7 RBC 3.36 L Hgb 7.1 L Hct 23.3 L MCV 70 L MCH 21 L MCHC 30 L RDW 24.4 H Plt Count 495 H Lymph % (Auto) 20.8 [place] % (Auto) 7.4 H Eos % (Auto) 2.2 Baso % (Auto) 0.7 Lymph # (Auto) 1.4 [place] # (Auto) 0.5 Eos # (Auto) 0.1 Baso # (Auto) 0.0 Seg Neutrophils % 68.9 Seg Neutrophils # 4.6 Sodium 140 Potassium 4.3 Chloride 105.8 Carbon Dioxide 25 Anion Gap 14 BUN 13 Creatinine 1.0 Estimated GFR > 60 BUN/Creatinine Ratio 13 Glucose 92 Calcium 9.0 Total Bilirubin 0.30 AST 36 ALT 24 Alkaline Phosphatase 65 Total Protein 7.1 Albumin 4.0 Albumin/Globulin Ratio 1.3 Lipase 56 Urine Bilirubin Urine RBC (Auto) U Epithel Cells (Auto) Blood Type A POSITIVE Antibody Screen Negative 11/01/20 Unknown WBC RBC Hgb Hct MCV MCH MCHC RDW Plt Count Lymph % (Auto) [place] % (Auto) Eos % (Auto) Baso % (Auto) Lymph # (Auto) [place] # (Auto) Eos # (Auto) Baso # (Auto) Seg Neutrophils % Seg Neutrophils # Sodium Potassium Chloride Carbon Dioxide Anion Gap BUN Creatinine Estimated GFR BUN/Creatinine Ratio Glucose Calcium Total Bilirubin AST ALT Alkaline Phosphatase Total Protein Albumin Albumin/Globulin Ratio Lipase Urine Bilirubin Neg Urine RBC (Auto) 2.0 U Epithel Cells (Auto) < 1.0 Blood Type Antibody Screen - EKG Data -: EKG Interpreted by [place] EKG shows normal: sinus rhythm, axis, intervals, QRS complexes, ST-T waves Rate: normal - Radiology Data Radiology results: report reviewed, image reviewed CT abdomen pelvis w con INDICATION / CLINICAL INFORMATION: abdominal pain hx of hernia hx of gi bleed. TECHNIQUE: All CT scans at this location are performed using CT dose reduction for ALARA by means of automated exposure control. COMPARISON: None available. FINDINGS: No free fluid is seen in the abdomen. Small cysts are seen in the left lobe of the liver. There is an ill-defined 1.7 cm slightly low density lesion in the right lobe of the liver (image 44). Small cysts are present in the kidneys. Diffuse atherosclerotic changes present without evidence of an aneurysm. The spleen, pancreas and adrenal glands are normal. No enlarged mesenteric or retroperitoneal lymph nodes are identified. There is thickening of the mid ascending colon. The pelvis, no free fluid is seen. No enlarged lymph nodes are identified. The bladder and the appendix are normal. No significant skeletal abnormality is seen. Moderate degenerative changes seen in the lower lumbar spine IMPRESSION: 1. Thickening of the mid ascending colon 2. Ill-defined 1.7 cm slightly low density lesion in the right lobe of the liver. Small cysts are seen in the left lobe 3. Diffuse atherosclerotic change without evidence of an aneurysm 4. Degenerative change in the lower lumbar spine Critical care attestation.: If time is entered above; I have spent that time in minutes in the direct care of this critically ill patient, excluding procedure time. ED Disposition Clinical Impression: Mass of colon, Symptomatic anemia, Guaiac positive stools Disposition: TO HOME OR SELFCARE Condition: Stable Referrals: PRIMARY CARE, [Primary Care Provider] - 3-5 Days
[2020-11-01 18:10] LABS: WBC,Urine < 1.0 /HPF (0.0-6.0)
== END 2020-11-01 19:10 | disposition home or self-care (01) ==
LOC: ED 11:58
DX: K63.89 Other specified diseases of intestine (principal); K44.9 Diaphragmatic hernia without obstruction or gangrene; K30 Functional dyspepsia; I10 Essential (primary) hypertension; Z79.899 Other long term (current) drug therapy; Z88.0 Allergy status to penicillin
CPT/HCPCS: 36415; 74177; 80053; 81001; 83690; 85025; 86850; 86900; 86901; 93005; 96374; 96375; 99284; C9113; J2270; J2405; Q9967

== ENCOUNTER 2020-12-05 07:02 | Outpatient (CLI) | payer MEDICARE ==
[2020-12-05] MEDS ORDERED: ONDANSETRON 4 MG/2 ML INJ IV SCH (09:30)
[2020-12-05] MEDS ORDERED: HYDROmorphone 1 MG/1 ML INJ IV PRN (09:30)
[2020-12-05] MEDS ORDERED: SODIUM CHLORIDE 0.9% 500 ML 500 ML IV SCH (10:00)
[2020-12-05 10:40] LABS: Hematocrit 21.2 % (35.5-45.6); Hemoglobin 6.5 gm/dl (11.8-15.2); Mean Corpuscular HGB Conc 31 % (32-34); Mean Corpuscular Volume 72 fl (84-94); Platelet Count 438 K/mm3 (140-440); Red Blood Count 2.94 M/mm3 (3.65-5.03)
[2020-12-05 10:53] LABS: Partial Thromboplastin Time 26.4 Sec. (24.2-36.6)
[2020-12-05 11:19] LABS: INR 1.07 (0.87-1.13)
--- NOTE | 2020-12-05 14:20 | Cat Scan Report ---
CT-GUIDED LIVER BIOPSY INDICATION : Colon cancer, right hepatic lobe mass.. COMPARISON: CT abdomen pelvis dated 1216 and 20 PROCEDURE: The risks (including but not limited to bleeding and infection) and benefits were explain ed to the patient and informed consent was obtained. All CT scans at this location are performed usi ng CT dose reduction for ALARA by means of automated exposure control. A time out procedure was performed. The procedure site was prepped and draped in the usual sterile f ashion and lidocaine was used for local anesthesia. Anxiolysis was accomplished with IV Dilaudid and Zofran. Using CT guidance, a 19-gauge introducer needle was advanced to the leading edge of a 2.8 cm right he patic lobe mass. 4 separate 2.2 cm 20-gauge core biopsies were obtained for pathology. The pathologis t was present and deemed the samples adequate. Postbiopsy scan demonstrates no evidence for hemorrhag e. The patient tolerated the procedure well with no complications. IMPRESSION: Successful CT-guided biopsy of the 2.8 cm right hepatic lobe mass. Signer Name: Chito Lindsey Jr, MD Signed: 12/05/2020 2:15 PM Workstation Name: [id number]
[2020-12-05 15:41] VITALS: BP 119/56
== END 2020-12-05 07:03 | disposition home or self-care (01) ==
LOC: CATHLABREC 07:02 → CT 07:02 → CATHLABREC 07:03
PROVIDERS: ATTEND Surgery
DX: K76.89 Other specified diseases of liver (principal); C18.9 Malignant neoplasm of colon, unspecified; D64.9 Anemia, unspecified; J43.9 Emphysema, unspecified; I10 Essential (primary) hypertension; Z88.0 Allergy status to penicillin; Z79.899 Other long term (current) drug therapy; Z87.891 Personal history of nicotine dependence; Z72.89 Other problems related to lifestyle; Z98.890 Other specified postprocedural states
CPT/HCPCS: 36415; 47000; 77012; 85027; 85610; 85730; 88307; J1170; J2405; J7040

== ENCOUNTER 2020-12-18 20:14 | Emergency (ER) | payer MEDICARE ==
--- NOTE | 2020-12-18 21:16 | Event Note ---
ED Screening Note Date of service: 12/18/20 Time: 21:15 ED Screening Note: Taiwanese speaking sent here for Hgb < 6 and needing blood transfusion +melena has liver cancer per pt denies hematemesis or hematochezia This initial assessment/diagnostic orders/clinical plan/treatment(s) is/are subject to change based on patients health status, clinical progression and re- assessment by fellow clinical providers in the ED. Further treatment and workup at subsequent clinical providers discretion. Patient/guardian urged not to elope from the ED as their condition may be serious if not clinically assessed and managed. Initial orders include: labs
[2020-12-18 21:21] LABS: Basophils % (Auto) 0.3 % (0.0-1.8); Eosinophils # (Auto) 0.2 K/mm3 (0.0-0.4); Eosinophils % (Auto) 1.5 % (0.0-4.3); Hematocrit 23.2 % (35.5-45.6); Lymphocytes # (Auto) 1.8 K/mm3 (1.2-5.4); Lymphocytes % (Auto) 16.1 % (13.4-35.0); Mean Corpuscular HGB Conc 30 % (32-34); Mean Corpuscular Volume 73 fl (84-94); Monocytes # (Auto) 0.7 K/mm3 (0.0-0.8); Monocytes % (Auto) 6.3 % (0.0-7.3); Platelet Count 485 K/mm3 (140-440); Red Blood Count 3.17 M/mm3 (3.65-5.03)
[2020-12-18 21:25] LABS: Red Cell Distribution Width 22.6 % (13.2-15.2)
[2020-12-18 21:31] LABS: Alanine Aminotransferase 19 units/L (7-56); BUN/Creatinine Ratio 17; Blood Urea Nitrogen 22 mg/dL (9-20); Calcium 8.7 mg/dL (8.4-10.2); Hemolysis Index 2
[2020-12-18 21:34] LABS: INR 0.97 (0.87-1.13)
[2020-12-18 21:35] LABS: Partial Thromboplastin Time 24.7 Sec. (24.2-36.6)
[2020-12-19 01:57] LABS: Hyaline Casts,Urine 1 /LPF
[2020-12-19 02:43] LABS: Bilirubin,Urine NEG (Negative); Blood,Urine NEG (Negative); Color,Urine Yellow (Yellow); Mucus,Urine FEW /HPF; Protein,Urine <15 mg/dL mg/dL (Negative); Urobilinogen,Urine < 2.0 mg/dL (<2.0); WBC,Urine < 1.0 /HPF (0.0-6.0)
== END 2020-12-19 04:35 | disposition left against medical advice (07) ==
LOC: ED 20:14
DX: C22.9 Malignant neoplasm of liver, not specified as primary or secondary (principal); Z53.21 Procedure and treatment not carried out due to patient leaving prior to being seen by health care provider
CPT/HCPCS: 36415; 80053; 81001; 83690; 85025; 85610; 85730; 86850; 86900; 86901

== ENCOUNTER 2021-01-16 07:32 | Day surgery (SDC) | payer MEDICARE ==
[~2021-01-16 07:32] MED LIST: LACTATED RINGERS 1,000 ML IV SCH; VANCOMYCIN/NS 1 GM/250 ML 1 GM/250 ML BAG IV NR
--- NOTE | 2021-01-16 07:57 | Anesthesia Day of Surgery ---
Anesthesia Day of Surgery - Day of Surgery Patient Examined: Yes Patient H&P Reviewed: Yes Patient is NPO: Yes
--- NOTE | 2021-01-16 07:57 | Anesthesia Consultation ---
Anesthesia Consult and Med Hx Date of service: 01/16/21 - Airway Anesthetic Teeth Evaluation: Poor (1 remaining lower toothl denies that it is loose), Edentulous (upper) ROM Head & Neck: Adequate Mental/Hyoid Distance: Adequate Mallampati Class: Class II Intubation Access Assessment: Probably Good - Pulmonary Exam CTA: Yes - Cardiac Exam Cardiac Exam: RRR - Pre-Operative Health Status ASA Pre-Surgery Classification: ASA3 Proposed Anesthetic Plan: MAC - Pulmonary Hx Smoking: Yes (former smoker quit 20yrs ago) COPD: Yes (last albuterol use several days ago) Home Oxygen Therapy: No Hx Sleep Apnea: No (TON PRE SCREEN HIGH RISK) - Cardiovascular System Hx Hypertension: Yes (no rx at this time) Hx Heart Attack/AMI: No Hx Percutaneous Transluminal Coronary Angioplasty (PTCA): No Hx Cardia Arrhythmia: No - Central Nervous System CVA: No - Gastrointestinal Hx Ulcer: Yes - Endocrine Hx Renal Disease: No Hx Liver Disease: Yes (colon ca with mets to liver) Hx Insulin Dependent Diabetes: No Hx Non-Insulin Dependent Diabetes: No Hx Hypothyroidism: Yes (took synthroid this morning) - Other Systems 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
[2021-01-16] MEDS ORDERED: VANCOMYCIN 1,250 MG in SODIUM CHLORIDE 0.9% 250ML 250 ML IV SCH (08:30)
[2021-01-16] MEDS ORDERED: propofoL 200 MG/20 ML VIAL IV ONE (09:17)
[2021-01-16] MEDS ORDERED: HYDROmorphone 1 MG/1 ML INJ ONE (09:17)
[2021-01-16] MEDS ORDERED: LIDOCAINE MPF (2%) 20 MG/1 ML VIAL 5 ML ONE (09:18)
[2021-01-16] MEDS ORDERED: BUPIVACAINE/PF (0.25%) 2.5 MG/ML 30 ML VIAL INFILTRATI ONE ×2 (09:49→10:57)
[2021-01-16] MEDS ORDERED: LIDOCAINE (1%) 10 MG/1 ML VIAL 20 ML MDV ONE (09:49)
[2021-01-16] MEDS ORDERED: HEPARIN 10,000 UNITS/10 ML VIAL ONE (09:50)
[2021-01-16] MEDS ORDERED: SODIUM CHLORIDE 0.9% IRR 1,500 ML BOTTLE IR ONE (10:51)
[2021-01-16] MEDS ORDERED: HEPARIN 10,000 UNITS/10 ML VIAL IV ONE (10:51)
[2021-01-16] MEDS ORDERED: SODIUM CHLORIDE 0.9% 100 ML IVPB IV ONE (10:52)
[2021-01-16] MEDS ORDERED: LIDOCAINE (1%) 10 MG/1 ML VIAL 20 ML MDV INFILTRATI ONE (10:53)
[2021-01-16] MEDS ORDERED: KETOROLAC 30 MG/1 ML INJ ONE (11:07)
--- NOTE | 2021-01-16 11:14 | Short Stay Summary ---
Short Stay Documentation Date of service: 01/16/21 - History Principal diagnosis: colon ca with mets H&P: obtained from office - Allergies and Medications Current Medications: Allergies Penicillins Allergy (Verified 01/12/21 14:21) Swelling Home Medications Medication Instructions Recorded Confirmed Last Taken Type Ferrous Sulfate [Ferrous Sulfate 324 mg PO BID #60 tablet. 10/26/20 01/12/21 01/15/21 Rx 324 MG] Albuterol Sulfate [Proventil Hfa] 2 puff IH PRN PRN 01/12/21 01/16/21 01/14/21 History Levothyroxine Sodium 125 mcg PO DAILY 01/12/21 01/16/21 01/16/21 06:30 History [Levothyroxine] Mirabegron [Myrbetriq] 25 mg PO QDAY 01/12/21 01/12/21 01/15/21 History Sennosides/Docusate Sodium 1 each PO DAILY 01/12/21 01/12/21 01/15/21 History [Docusate Sodium-Senna Tablet] diazePAM [Diazepam] 10 mg PO DAILY 01/12/21 01/12/21 01/15/21 History megestroL [Megace] 20 mg PO DAILY 01/12/21 01/12/21 01/15/21 History Active Medications Lactated Ringer's (Lactated Ringers) 1,000 mls @ 100 mls/hr IV DIRECT ASHISH Stop: 01/16/21 23:59 Last Admin: 01/16/21 08:40 Dose: 100 mls/hr Documented by: - Brief post op/procedure progress note Date of procedure: 01/16/21 Pre-op diagnosis: colon cancer with metastasis Post-op diagnosis: same Procedure: left IJ port placement with mindray ultrasound guidance Anesthesia: MAC, local Findings: good placement of port without PTX on post op CXR Surgeon: JIMI CEDILLO Estimated blood loss: minimal Pathology: none Condition: stable - Hospital course Hospital course: Pt observed in PACU and discharged to home in stable condition when criteria met - Disposition Condition at discharge: Good Disposition: DC-01 TO HOME OR SELFCARE Short Stay Discharge Plan Activity: no restrictions Diet: regular Wound: open to air (may shower tomorrow, pat incisions dry, do not scrub) Follow up with: PRIMARY CARE, [Primary Care Provider] - 7 Days JIMI CEDILLO DO [Staff Physician] - 14 Days Prescriptions: HYDROcodone/APAP 5-325 [[place] 5/325] 1 each PO Q6HR PRN #5 tablet PRN Reason: Pain , Severe (7-10)
[2021-01-16] MEDS ORDERED: diphenhydrAMINE 50 MG/ML VIAL IV NR (11:33)
--- NOTE | 2021-01-16 11:50 | Operative Report ---
Operative Report Operative Report: Date of procedure: 01/16/21 Pre-op diagnosis: colon cancer with metastasis Post-op diagnosis: same Procedure: left IJ port placement with mindray ultrasound guidance Anesthesia: MAC, local Findings: good placement of port without PTX on post op CXR Surgeon: JIMI CEDILLO Estimated blood loss: minimal Pathology: none Condition: stable Hospital course: Pt observed in PACU and discharged to home in stable condition when criteria met HPI and indication: Patient is a 80 yo M who has been diagnosed with metatatic colon cancer. The patient is seen by Dr. Molina and deemed a candidate for chemotherapy which is set to start on 01/22/21. All of the risks associated with the procedure were discussed with the patient and his nephew/NOK including but not limited to pneumothorax, infection, bleeding, malpositioned port, injury to other structures. The patient understands and all questions were answered. Consent was signed and placed on chart. Procedure in detail: The patient was identified in the preoperative area, taken back to operating room, placed on operating table in supine position. After anesthesia was induced the left arm was tucked and upper chest and neck were prepped and draped in usual sterile fashion. A timeout was performed. The was placed in Trendelenburg position. Local anesthetic was infiltrated into the skin at the intended puncture site. The left subclavian and internal jugular vein identified using bedside ultrasound. 2 attempts made to access subclavian vein but were unsuccessful. The left IJ vein was accessed on the first stick. There was return of dark red, nonpulsatile blood. The wire was threaded under fluoroscopy without resistance and positioning confirmed using fluoroscopy. The needle was then removed. Local anesthetic was infiltrated into the skin in the left upper chest and intended incision site. Using a 15 blade, an incision was made in the left upper chest and dissection carried down through the skin and subcutaneous tissue using Bovie electrocautery. Hemostasis was achieved along the way. Once the prepectoral fascia was encountered, a pocket for the port was then created bluntly and with electrocautery. The catheter was flushed and tunneled from the pocket to the wire. A breakaway catheter/dilator sheath then inserted over the wire under continuous fluoroscopy, and the wire and dilator removed. The catheter was then inserted through the breakaway catheter which was then removed. The catheter sat flush under the skin. Using continuous fluoroscopy, the catheter was pulled back until the tip was visualized in the right atrium. The catheter was then cut to size and the port attached in the usual fashion. The port was then sutured into place to the pre-pectoral fascia using 2-0 Vicryl interrupted sutures. The wound was irrigated and hemostasis ensured. The port was tested with heparinized saline and there was return of blood and it flushed easily. The port was then instilled with 3000 units of heparin. The wound was irrigated. The deep dermal layer was then closed with interrupted 3-0 Vicryl stitches. The skin incisions were closed with 4-0 Monocryl subcuticular stitches and skin glue. Intraoperative chest x-ray did show good positioning of the port, without evidence of pneumothorax At the end of the case, all sponge, instrument, sharp counts were correct 2. The patient was awoken from anesthesia and taken to PACU in stable condition.
[2021-01-16 12:49] VITALS: BP 147/76
--- NOTE | 2021-01-16 14:24 | Fluoroscopy Report ---
Fluoroscopy Central venous device placement HISTORY: Colon cancer, left [id number] placement COMPARISON: 10/23/2020 FINDINGS: 0.4 minutes of fluoroscopy time was provided by radiology during left IJ Perkix-c-[id number] plac ement. 2 AP images of the chest are presented. The distal tip of the catheter terminates near the cav oatrial junction. There is no evidence for pneumothorax. The lungs are generally clear. Signer Name: Chito Lindsey Jr, MD Signed: 01/16/2021 2:20 PM Workstation Name: [id number]
== END 2021-01-16 13:15 | disposition home or self-care (01) ==
LOC: OR 07:32
PROVIDERS: ATTEND Surgery
DX: C18.9 Malignant neoplasm of colon, unspecified (principal); C78.7 Secondary malignant neoplasm of liver and intrahepatic bile duct; I10 Essential (primary) hypertension; D64.9 Anemia, unspecified; J43.9 Emphysema, unspecified; G43.909 Migraine, unspecified, not intractable, without status migrainosus; E03.9 Hypothyroidism, unspecified; F41.9 Anxiety disorder, unspecified; Z72.89 Other problems related to lifestyle; Z86.718 Personal history of other venous thrombosis and embolism; Z80.8 Family history of malignant neoplasm of other organs or systems; Z96.651 Presence of right artificial knee joint; Z88.0 Allergy status to penicillin; Z79.899 Other long term (current) drug therapy; Z20.828 Contact with and (suspected) exposure to other viral communicable diseases; Z87.891 Personal history of nicotine dependence
CPT/HCPCS: 36561; 77001; C1769; C1788; J1170; J1200; J1644; J1885; J2704; J3370; J7050; J7120; U0003

== ENCOUNTER 2021-01-18 06:30 | Outpatient (CLI) | payer MEDICARE ==
--- NOTE | 2021-01-18 09:49 | PET Report ---
PET-CT SCAN INDICATION / CLINICAL INFORMATION: Hx of colon ca . STAGING: Initial Staging TECHNIQUE: Tumor imaging, positron emission tomography (PET) with concurrently acquired computed tomography (CT) for attenuation correction and anatomical localization; Skull Base to Mid Thigh - DOSE: 13.29 mCi F-18 FDG was administered IV per protocol in the right hand - GLUCOSE: Patient's blood glucose at that time was (mg/dL): 86 - UPTAKE TIME: PET scan performed approximately 60 minutes after radiotracer administration. - CT SCAN DESCRIPTION: No oral or IV contrast. All CT scans at this location are performed using CT d ose reduction for ALARA by means of automated exposure control. COMPARISON: CT abdomen and pelvis with contrast from 11/01/2020. FINDINGS: HEAD / NECK: No abnormal radiotracer uptake in the neck. No significant CT abnormality. CHEST: No abnormal radiotracer uptake in the chest. There is a nonspecific prominent mediastinal node located to the right of midline at the level of the ilene on image 82 without suspiciously increase d metabolic activity measuring 1 cm in short axis dimension. No other significant adenopathy. No susp icious pulmonary nodule or mass. There is mild emphysema. Mild aortic and coronary atherosclerosis is noted. Along the right upper back just below the skin is a hypodense ovoid lesion measuring up to 2. 3 cm on image 71 that is most likely benign and could represent a sebaceous cyst. ABDOMEN / PELVIS: Hypermetabolic metastases are seen posteriorly along the right hepatic lobe and pos teriorly along the medial segment of the left hepatic lobe with maximum SUVs of 15.6 and 14.4, respec tively. The larger of these 2 lesions is located in the right hepatic lobe measuring up to 3.3 cm a p reviously seen mass along the mid ascending colon is abnormally hypermetabolic with a maximum SUV of 13.7. The mass is unchanged and measures 3.7 x 2.6 cm on image 157. No other sites of suspiciously in creased metabolic activity. No other significant interval changes. LOWER EXTREMITIES: No abnormal radiotracer uptake in the visualized lower extremities. No significant CT abnormality. SKELETAL STRUCTURES: No hypermetabolic bone lesions. No aggressive appearing lesion. Moderate degener ative changes are noted along the spine and SI joints. There are mild degenerative changes along the hips. ADDITIONAL FINDINGS: No additional significant findings. IMPRESSION: Hypermetabolic ascending colon cancer with hypermetabolic metastases to the liver as above. Signer Name: Jose Quezada MD Signed: 01/18/2021 9:45 AM Workstation Name: [id number]
== END 2021-01-18 06:31 | disposition home or self-care (01) ==
LOC: PET 06:30
PROVIDERS: ATTEND Internal Medicine Hematology & Oncology
DX: C18.7 Malignant neoplasm of sigmoid colon (principal); C78.7 Secondary malignant neoplasm of liver and intrahepatic bile duct; D64.9 Anemia, unspecified; C18.2 Malignant neoplasm of ascending colon; R68.89 Other general symptoms and signs; D50.8 Other iron deficiency anemias; J43.9 Emphysema, unspecified; I25.10 Atherosclerotic heart disease of native coronary artery without angina pectoris; M16.0 Bilateral primary osteoarthritis of hip; M47.819 Spondylosis without myelopathy or radiculopathy, site unspecified; M47.898 Other spondylosis, sacral and sacrococcygeal region
CPT/HCPCS: 78815; 82962; A9552

== ENCOUNTER 2021-06-21 06:04 | Outpatient (CLI) | payer MEDICARE ==
--- NOTE | 2021-06-21 10:33 | PET Report ---
PET-CT SCAN INDICATION / CLINICAL INFORMATION: C18.2. STAGING: Re-staging TECHNIQUE: Tumor imaging, positron emission tomography (PET) with concurrently acquired computed tomography (CT) for attenuation correction and anatomical localization; Skull Base to Mid Thigh - DOSE: 14.8 mCi F-18 FDG was administered IV per protocol in the right AC - GLUCOSE: Patient's blood glucose at that time was (mg/dL): 135 - UPTAKE TIME: PET scan performed approximately 60 minutes after radiotracer administration. - CT SCAN DESCRIPTION: No oral or IV contrast. All CT scans at this location are performed using CT d ose reduction for ALARA by means of automated exposure control. COMPARISON: PET/CT from 01/18/2021. FINDINGS: HEAD / NECK: No abnormal radiotracer uptake in the neck. CHEST: No abnormal radiotracer uptake in the chest. Previously identified right paratracheal node is decrease in size, now measuring 5 mm in short axis and remains nonhypermetabolic. ABDOMEN / PELVIS: Previously seen metabolic activity in the medial segment left hepatic lobe and post erior right hepatic lobe has resolved. Lesions also are improved by CT with right hepatic lesion cuba uring 1.3 cm; previously measured 3.3 cm. Left hepatic lesion is more ill-defined, though also appear s improved. No new uptake in the liver. Decreased size of mass in the mid ascending colon, now measur ing 2.6 x 1.8 cm. Metabolic activity is also improved, with max SUV now measuring 5.6; previously emelina sured 13.7. No new abnormal radiotracer uptake in the abdomen or pelvis. LOWER EXTREMITIES: No abnormal radiotracer uptake in the visualized lower extremities. SKELETAL STRUCTURES: No hypermetabolic bone lesions. ADDITIONAL FINDINGS: No additional significant findings. IMPRESSION: 1. Findings consistent with positive response to therapy with improved uptake associated with ascend ing colon cancer and resolved uptake and improved size of hepatic metastatic lesions. 2. No new FDG avid neoplastic disease. Signer Name: Malachi Rincon MD Signed: 06/21/2021 10:29 AM Workstation Name: [id number]
== END 2021-06-21 06:05 | disposition home or self-care (01) ==
LOC: PET 06:04
PROVIDERS: ATTEND Internal Medicine Hematology & Oncology
DX: C18.2 Malignant neoplasm of ascending colon (principal); C78.7 Secondary malignant neoplasm of liver and intrahepatic bile duct; D64.9 Anemia, unspecified; R68.89 Other general symptoms and signs; D50.8 Other iron deficiency anemias
CPT/HCPCS: 78815; 82962; A9552

== ENCOUNTER 2021-07-26 09:33 | Outpatient (CLI) | payer MEDICARE ==
--- NOTE | 2021-07-26 12:17 | Magnetic Resonance Report ---
MR brain wo/w con INDICATION / CLINICAL INFORMATION: 80 years Male; MALIGNANT NEOPLASM OF ASCENDING COLON, MEMORY LOSS, UNSTEADY GAIT. TECHNIQUE: Multiplanar, multisequence MR images of the brain were obtained. COMPARISON: None available. FINDINGS: BRAIN / INTRACRANIAL CONTENTS: The motion significantly degrades the image quality despite repeat eliezer ging. However, there is extensive cerebral white matter disease most consistent with advanced microva scular angiopathy. The diffusion imaging reveals no evidence of acute infarction. The motion particul esha degrades the postcontrast sequences. However, no definitive intracranial enhancing lesions are a ppreciated at. There is moderate to cerebral atrophy with associated prominence of the ventricular system. No extra- axial fluid collections or significant mass effect is identified at. The atrophic changes involving t he temporal lobes and hippocampi. CRANIOCERVICAL JUNCTION: No significant abnormality. VASCULAR FLOW-VOIDS: No significant abnormality. ORBITS: No significant abnormality of visualized orbits. SINUSES / MASTOIDS: There are scattered inflammatory changes within the ethmoid air cells. There is a lso mild mucosal thickening within the left sphenoid sinus. ADDITIONAL FINDINGS: None. IMPRESSION: 1. There is extensive microvascular angiopathy as detailed above without clear evidence of recent inf arction or intracranial enhancing lesions. Signer Name: Michael Farfan MD Signed: 07/26/2021 12:12 PM Workstation Name: [id number]
== END 2021-07-26 09:34 | disposition home or self-care (01) ==
LOC: MRI 09:33
PROVIDERS: ATTEND Internal Medicine Hematology & Oncology
DX: C18.2 Malignant neoplasm of ascending colon (principal); G31.9 Degenerative disease of nervous system, unspecified; I67.89 Other cerebrovascular disease
CPT/HCPCS: 70553; A9575